=== PATIENT | male | born 1995 | race African-American/Black ===

== ENCOUNTER 2017-09-11 09:45 | Emergency (ER) | payer OTHER ==
[2017-09-11] MEDS: ONDANSETRON PF 4 MG/2 ML VIAL. IV ×2 (10:05)
[2017-09-11] MEDS: IV NORMAL SALINE 1000ML BAG 1,000 ML IV ×4 (10:05→10:58)
[2017-09-11 10:08] LABS: BASO % 0 % (0-3); EOS % 0 % (0-3); HEMATOCRIT 47.2 % (39.0-53.0); HEMOGLOBIN 16.1 g/dL (13.0-17.5); LYMPH # 0.5 x10^3/uL (1.0-4.8); LYMPH % 6 % (24-48); MEAN CORPUSCULAR HEMOGLOBIN 31 pg (25-35); MEAN CORPUSCULAR HGB CONC 34 g/dL (31-37); MEAN CORPUSCULAR VOLUME 90 fL (79-100); MONO # 0.6 x10^3/uL (0.0-1.1); MONO % 7 % (0-9); NEUT # 7.3 x10^3uL (1.8-7.7); NEUT % 86 % (31-73); PLATELET COUNT 190 x10^3/uL (140-400); RED BLOOD COUNT 5.25 x10^6/uL (4.30-5.70); RED CELL DISTRIBUTION WIDTH 12.8 % (11.5-14.5); WHITE BLOOD COUNT 8.4 x10^3/uL (4.0-11.0)
[2017-09-11 10:12] LABS: ADD MAN DIFF? YES
[2017-09-11 10:20] LABS: ANION GAP 14 (6-14); BLOOD UREA NITROGEN 20 mg/dL (8-26); BUN/CREATININE RATIO 18 (6-20); CALCIUM 9.9 mg/dL (8.5-10.1); CARBON DIOXIDE 25 mmol/L (21-32); CHLORIDE 102 mmol/L (98-107); CREATININE 1.1 mg/dL (0.7-1.3); GFR 101.3; GLUCOSE 123 mg/dL (70-99); POTASSIUM 3.8 mmol/L (3.5-5.1); SODIUM 141 mmol/L (136-145)
[2017-09-11 10:25] LABS: ALBUMIN 4.4 g/dL (3.4-5.0); ALBUMIN/GLOBULIN RATIO 1.2 (1.0-1.7); ALK PHOS 69 U/L (46-116); ALT (SGPT) 23 U/L (16-63); AST (SGOT) 21 U/L (15-37); LIPASE 163 U/L (73-393); TOTAL BILIRUBIN 0.7 mg/dL (0.2-1.0)
[2017-09-11 10:30] LABS: INFLUENZA A PATIENT NEGATIVE (NEGATIVE); INFLUENZA B PATIENT NEGATIVE (NEGATIVE); OBC FLU VALID
[2017-09-11 11:12] LABS: % BANDS 1 % (0-9); % LYMPHS 7 % (24-48); % MONOS 6 % (0-10); % SEGS 86 % (35-66); PLT ESTIMATE ADEQUATE (ADEQUATE)
[2017-09-11 11:41] LABS: BILIRUBIN,URINE NEGATIVE (NEG); CLARITY,URINE CLEAR; COLOR,URINE YELLOW; GLUCOSE,URINE NEGATIVE (NEG); NITRITE,URINE NEGATIVE (NEG); PROTEIN,URINE NEGATIVE (NEG-TRACE); UROBILINOGEN,URINE 0.2 mg/dL (0.2 mg/dL)
[2017-09-11 11:58] LABS: BACTERIA,URINE 0 /HPF (0-FEW); RBC,URINE 0 /HPF (0-2); WBC,URINE 0 /HPF (0-4)
== END 2017-09-11 12:10 | disposition home or self-care (01) ==
LOC: ER 09:45
DX: B34.9 Viral infection, unspecified (principal); F12.10 Cannabis abuse, uncomplicated
CPT/HCPCS: 36415; 80053; 81001; 83690; 85007; 85025; 87804; 87804-59; 96361; 96374; 99285-25; J2405; J7030

== ENCOUNTER 2018-01-21 09:42 | Emergency (ER) | payer OTHER ==
[2018-01-21] MEDS: ONDANSETRON ODT 4 MG TAB.RAPDIS. PO (10:39)
== END 2018-01-21 11:11 | disposition home or self-care (01) ==
LOC: ER 11:11
DX: R11.2 Nausea with vomiting, unspecified (principal); F12.10 Cannabis abuse, uncomplicated; F17.200 Nicotine dependence, unspecified, uncomplicated
CPT/HCPCS: 99284; Q0162

== ENCOUNTER 2018-03-01 07:59 | Emergency (ER) | payer OTHER ==
[2018-03-01 08:31] LABS: BILIRUBIN,URINE NEGATIVE (NEG); CLARITY,URINE CLOUDY; COLOR,URINE YELLOW; GLUCOSE,URINE NEGATIVE (NEG); NITRITE,URINE NEGATIVE (NEG); PH,URINE 6.5; PROTEIN,URINE NEGATIVE (NEG-TRACE)
[2018-03-01] MEDS: AZITHROMYCIN 250 MG TABLET. PO (08:32)
[2018-03-01] MEDS: cefTRIAXone IM 250 MG VIAL IM (08:37)
[2018-03-01 08:49] LABS: BACTERIA,URINE 0 /HPF (0-FEW); RBC,URINE 0 /HPF (0-2); WBC,URINE TNTC /HPF (0-4)
[2018-03-02 14:29] LABS: CHLAMYDIA PROBE Negative (Negative); GC PROBE Positive (Negative)
== END 2018-03-01 09:15 | disposition home or self-care (01) ==
LOC: ER 07:59
DX: A64 Unspecified sexually transmitted disease (principal); Z87.438 Personal history of other diseases of male genital organs; Z98.890 Other specified postprocedural states
CPT/HCPCS: 81001; 87086; 87491; 87591; 96372; 99284; J0696; Q0144

== ENCOUNTER 2018-03-11 11:03 | Emergency (ER) | payer OTHER ==
[2018-03-11 11:30] LABS: BASO # 0.1 x10^3/uL (0.0-0.2); BASO % 1 % (0-3); EOS # 0.1 x10^3/uL (0.0-0.7); EOS % 1 % (0-3); HEMATOCRIT 46.2 % (39.0-53.0); LYMPH # 1.2 x10^3/uL (1.0-4.8); LYMPH % 9 % (24-48); MEAN CORPUSCULAR HEMOGLOBIN 31 pg (25-35); MEAN CORPUSCULAR HGB CONC 35 g/dL (31-37); MEAN CORPUSCULAR VOLUME 91 fL (79-100); MONO # 0.2 x10^3/uL (0.0-1.1); MONO % 2 % (0-9); NEUT # 11.5 x10^3uL (1.8-7.7); NEUT % 88 % (31-73); PLATELET COUNT 204 x10^3/uL (140-400); RED BLOOD COUNT 5.11 x10^6/uL (4.30-5.70); WHITE BLOOD COUNT 13.1 x10^3/uL (4.0-11.0)
[2018-03-11 11:32] LABS: ADD MAN DIFF? YES
[2018-03-11 11:39] LABS: ANION GAP 14 (6-14); BLOOD UREA NITROGEN 14 mg/dL (8-26); CALCIUM 9.4 mg/dL (8.5-10.1); CARBON DIOXIDE 23 mmol/L (21-32); CHLORIDE 101 mmol/L (98-107); CREATININE 1.2 mg/dL (0.7-1.3); GFR 91.6; GLUCOSE 156 mg/dL (70-99); SODIUM 138 mmol/L (136-145)
[2018-03-11] MEDS: IV NORMAL SALINE 1000ML BAG 1,000 ML IV (11:39)
[2018-03-11] MEDS: diphenhydrAMINE 50 MG/ML VIAL IVP (11:41)
[2018-03-11] MEDS: PROCHLORPERAZINE 10 MG/2 ML VIAL. IV (11:42)
[2018-03-11] MEDS: MORPHINE SULFATE 4 MG/ML DISP.SYRIN. IV (11:43)
[2018-03-11 11:47] LABS: ALBUMIN 4.4 g/dL (3.4-5.0); ALK PHOS 73 U/L (46-116); ALT (SGPT) 59 U/L (16-63); AST (SGOT) 63 U/L (15-37); DIRECT BILIRUBIN 0.2 mg/dL (0.0-0.2); LIPASE 117 U/L (73-393); TOTAL BILIRUBIN 1.1 mg/dL (0.2-1.0); TOTAL PROTEIN 7.9 g/dL (6.4-8.2)
[2018-03-11 12:10] LABS: % BANDS 11 % (0-9); % BASOS 1 % (0-3); % LYMPHS 9 % (24-48); % MONOS 2 % (0-10); % SEGS 77 % (35-66); PLT ESTIMATE ADEQUATE (ADEQUATE)
[2018-03-11] MEDS ORDERED: CONTRAST GIVEN. MC (12:45)
[2018-03-11 13:08] LABS: BILIRUBIN,URINE NEGATIVE (NEG); CLARITY,URINE CLEAR; COLOR,URINE YELLOW; GLUCOSE,URINE NEGATIVE (NEG); NITRITE,URINE NEGATIVE (NEG); PROTEIN,URINE NEGATIVE (NEG-TRACE)
[2018-03-11 13:15] LABS: BACTERIA,URINE 0 /HPF (0-FEW); RBC,URINE 0 /HPF (0-2); WBC,URINE >40 /HPF (0-4)
[2018-03-11] MEDS: IOHEXOL 300 MG/ML 100ML VIAL. IV (13:41)
== END 2018-03-11 16:14 | disposition home or self-care (01) ==
LOC: ER 11:03
DX: K29.70 Gastritis, unspecified, without bleeding (principal)
CPT/HCPCS: 36415; 74177; 76705; 80048; 80076; 81001; 83690; 85007; 85025; 96361; 96365; 96374; 96375; 99285-25; J0780; J1200; J2270; J7030; Q9967

== ENCOUNTER 2020-05-07 23:11 | Emergency (ER) | payer MEDICAID ==
[~2020-05-07] VITALS: Ht 165.1 cm; Wt 54.0 kg
[~2020-05-07 23:11] MED LIST: CEPH-263 PO; CIPR500T94 PO; METO10TA81 PO; ONDA4TAB10 SL; OXYC1TAB15 PO; RANI150T2 PO
[2020-05-07 23:20] VITALS: BP 124/79
[2020-05-07] MEDS ORDERED: LIDOCAINE 1%/EPI 1:100,000 20 ML VIAL. INJ ONE (23:30)
[2020-05-07] MEDS ORDERED: CEPHALEXIN 250 MG CAPSULE. PO ONE (23:30)
--- NOTE | 2020-05-08 00:47 | PHYS DOC ---
Past Medical History Past Medical History: No Pertinent History Past Surgical History: Other Additional Past Surgical Histo: TESTICLE Smoking Status: Current Every Day Smoker Alcohol Use: None General Adult EDM: Chief Complaint: ABSCESS HPI: HPI: The history was obtained from the patient. Patient is a 25-year-old male with no reported PMH who presents with a chief complaint of swelling to the left axilla region. Patient states he is noticed the swelling over the past few days. Denies any spontaneous drainage. Notes it somewhat tender to touch. Denies any overlying redness. Denies IV drug use. Denies any history of MRSA. Denies any trauma to the area. States he is never had this issue before. Denies any history of diabetes. Denies chest pain or shortness of breath. Has full range of motion of the left arm. No other complaints. Review of Systems: Review of Systems: Constitutional: Denies fever or chills. [] Eyes: Denies change in visual acuity. [] HENT: Denies nasal congestion or sore throat. [] Respiratory: Denies cough or shortness of breath. [] Cardiovascular: Denies chest pain or edema. [] GI: Denies abdominal pain, nausea, vomiting, bloody stools or diarrhea. [] : Denies dysuria. [] Musculoskeletal: Denies back pain or joint pain. [] Integument: Positive for fluctuance and abscess in the left axilla Neurologic: Denies headache, focal weakness or sensory changes. [] Endocrine: Denies polyuria or polydipsia. [] Lymphatic: Denies swollen glands. [] Psychiatric: Denies depression or anxiety. [] Heart Score: Risk Factors: Risk Factors: DM, Current or recent (<one month) smoker, HTN, HLP, family history of CAD, obesity. Risk Scores: Score 0 - 3: 2.5% MACE over next 6 weeks - Discharge Home Score 4 - 6: 20.3% MACE over next 6 weeks - Admit for Clinical Observation Score 7 - 10: 72.7% MACE over next 6 weeks - Early Invasive Strategies Current Medications: Current Medications Medications (Trade) Dose Ordered Sig/Tena Start Time Stop Time Status Last Admin Dose Admin Cephalexin HCl (Keflex) 1,000 mg 1X ONCE 05/07/20 23:30 05/07/20 23:31 DC 10/2/20 00:01 1,000 MG Lidocaine/ Epinephrine (LIDOCAINE 1%-EPI 1:100,000 Multi-Dose) 20 ml 1X ONCE 05/07/20 23:30 05/07/20 23:31 DC 05/07/20 23:30 20 ML Allergies: Allergies: Allergies Coded Allergies Type Severity Reaction Last Updated Verified No Known Drug Allergies 05/07/20 No Physical Exam: PE: Constitutional: Well developed, well nourished, no acute distress, non-toxic appearance. [] HENT: Normocephalic, atraumatic, bilateral external ears normal, oropharynx moist, no oral exudates, nose normal. [] Eyes: PERRLA, EOMI, conjunctiva normal, no discharge. [] Neck: Normal range of motion, no tenderness, supple, no stridor. [] Cardiovascular:Heart rate regular rhythm, no murmur [] Lungs & Thorax: Bilateral breath sounds clear to auscultation [] Abdomen: soft, no tenderness, no masses, no pulsatile masses. [] Skin: Warm, dry, no erythema, no rash. [] Back: No tenderness, no CVA tenderness. [] Extremities: Left axilla with palpable area of fluctuance. Mild overlying induration and erythema. 3 x 3 cm Neurologic: Alert and oriented X 3, normal motor function, normal sensory function, no focal deficits noted. [] Psychologic: Affect normal, judgement normal, mood normal. [] Current Patient Data: Vital Signs: Vital Signs Date Time Temp Pulse Resp B/P (MAP) Pulse Ox O2 Delivery O2 Flow Rate FiO2 05/07/20 23:20 97.8 81 16 124/79 (94) 98 Room Air 97.8 EKG: EKG: [] Radiology/Procedures: Radiology/Procedures: [] Location: Left axilla Indications: Abscess Procedure Details: Patient's left axilla was exposed, positioned, and prepped using ChloraPrep. Landmarks were palpated and skin was appropriately marked as needed. For skin and subcutaneous tissue, 8cc of 1% lidocaine with epinephrine was used. A 3 cm incision was made using #10 through skin in a linear fashion. Immediate findings included 10 mL of purulent drainage. Cavity further explored to break up all loculations. Wound was irrigated using 50 cc of normal saline. Minimal amount of bleeding occurred, controlled with direct pressure. Wound packed with 1/2 inch ribbon and covered with sterile dressing. Course & Med Decision Making: Course & Med Decision Making Pertinent Labs and Imaging studies reviewed. (See chart for details) [] Patient is an overall well-appearing 25-year-old male who presents with chief complaint of swelling to the left axillary region. Exam consistent with abscess to left axilla. Incision and drainage performed at bedside. See procedure note for further details. Patient will be discharged home with oral Keflex. He was instructed to have the wound reevaluated by his primary care physician in the next 2 to 3 days. Return precautions discussed and understood. Stable for discharge home. Dragon Disclaimer: [employer] Disclaimer: This electronic medical record was generated, in whole or in part, using a voice recognition dictation system. Departure Departure Impression: Primary Impression: Abscess Disposition: 01 HOME, SELF-CARE Condition: STABLE Referrals: NO PCP (PCP) Patient Instructions: Abscess Additional Instructions: Please follow-up with your primary care physician in the next 2 to 3 days. Scripts Cephalexin (KEFLEX) 500 Mg Capsule 1 CAP PO QID for 7 Days, #28 CAP 0 Refills Prov: STORMY GONZALEZ DO 05/08/20 STORMY GONZALEZ DO May 08, 2020 00:47
[2020-05-08] MEDS ORDERED: CEPH-264 PO (00:50)
== END 2020-05-08 01:40 | disposition home or self-care (01) ==
LOC: ER 23:11 → MERGE 23:11 → ER 05-08 01:40
DX: L02.412 Cutaneous abscess of left axilla (principal); F17.200 Nicotine dependence, unspecified, uncomplicated
CPT/HCPCS: 10060; 99283; J3490

== ENCOUNTER 2021-03-13 08:57 | Emergency (ER) | payer MEDICAID ==
[~2021-03-13] VITALS: Ht 162.6 cm; Wt 54.3 kg
[~2021-03-13 08:57] MED LIST changes: +CEPH-264 PO
[2021-03-13 10:00] VITALS: BP 133/89
--- NOTE | 2021-03-13 11:06 | RAD ---
XR CHEST 1V History: Cough, exposure to Covid. Comparison: None. Technique: AP radiograph of the chest. Findings: The lungs are adequately and symmetrically inflated. No airspace consolidation, pleural effusion or p neumothorax. The cardiomediastinal silhouette and pulmonary vasculature are within normal limits. No acute osseous abnormality. Soft tissues are unremarkable. Impression: 1. No acute cardiopulmonary process. Electronically signed by: Ernst Longo MD (03/13/2021 11:03 AM) [id number]
--- NOTE | 2021-03-13 11:15 | PHYS DOC ---
Past Medical History Past Medical History: No Pertinent History Additional Past Medical Histor: Right testicular torsion Past Surgical History: Other Additional Past Surgical Histo: TESTICLE Smoking Status: Current Every Day Smoker Alcohol Use: Occasionally Drug Use: Marijuana General Adult EDM: Chief Complaint: COUGH HPI: HPI: Patient is a 25 year old male with no significant medical history who presents to the ED today complaining of cough, nasal congestion, body aches, shortness of breath, fevers, symptoms for 2 to 3 days. Patient states his was diagnosed with Covid 19 a couple days ago. Review of Systems: Review of Systems: Constitutional: Reports fever Eyes: Denies change in visual acuity. [] HENT: Reports nasal congestion, denies sore throat. [] Respiratory: Reports cough and shortness of breath. [] Cardiovascular: Denies chest pain or edema. [] GI: Denies abdominal pain, nausea, vomiting, bloody stools or diarrhea. [] : Denies dysuria. [] Musculoskeletal: Denies back pain or joint pain. [] Integument: Denies rash. [] Neurologic: Denies headache, focal weakness or sensory changes. [] ] Psychiatric: Denies depression or anxiety. [] Heart Score: C/O Chest Pain: N/A Risk Factors: Risk Factors: DM, Current or recent (<one month) smoker, HTN, HLP, family history of CAD, obesity. Risk Scores: Score 0 - 3: 2.5% MACE over next 6 weeks - Discharge Home Score 4 - 6: 20.3% MACE over next 6 weeks - Admit for Clinical Observation Score 7 - 10: 72.7% MACE over next 6 weeks - Early Invasive Strategies Allergies: Allergies: Allergies Coded Allergies Type Severity Reaction Last Updated Verified No Known Drug Allergies 02/15/15 No Physical Exam: PE: Constitutional: Well developed, well nourished, no acute distress, non-toxic appearance. [] HENT: Normocephalic, atraumatic, bilateral external ears normal, oropharynx moist, no oral exudates, nose normal. [] Eyes: PERRLA, EOMI, conjunctiva normal, no discharge. [] Neck: Normal range of motion, no tenderness, supple, no stridor. [] Cardiovascular:Heart rate regular rhythm, no murmur [] Lungs & Thorax: Bilateral breath sounds clear to auscultation [] Abdomen: Bowel sounds normal, soft, no tenderness, no masses, no pulsatile masses. [] Skin: Warm, dry, no erythema, no rash. [] Back: No tenderness, no CVA tenderness. [] Extremities: No tenderness, no cyanosis, no clubbing, ROM intact, no edema. [] Neurologic: Alert and oriented X 3, normal motor function, normal sensory function, no focal deficits noted. [] Psychologic: Affect normal, judgement normal, mood normal. [] Current Patient Data: Vital Signs: Vital Signs Date Time Temp Pulse Resp B/P (MAP) Pulse Ox O2 Delivery O2 Flow Rate FiO2 03/13/21 10:00 98.5 75 18 133/89 (94) 100 Room Air 98.5 EKG: EKG: [] Radiology/Procedures: Radiology/Procedures: []PROCEDURE: CHEST AP ONLY XR CHEST 1V History: Cough, exposure to Covid. Comparison: None. Technique: AP radiograph of the chest. Findings: The lungs are adequately and symmetrically inflated. No airspace consolidation, pleural effusion or pneumothorax. The cardiomediastinal silhouette and pulmonary vasculature are within normal limits. No acute osseous abnormality. Soft tissues are unremarkable. Impression: 1. No acute cardiopulmonary process. Electronically signed by: Ernst Longo MD (03/13/2021 11:03 AM) [id number] DICTATED and SIGNED BY: ERNST LONGO MD DATE: 03/13/21 [id number] Course & Med Decision Making: Course & Med Decision Making Pertinent Labs and Imaging studies reviewed. (See chart for details) This is a 25-year-old male patient presenting to the ED today cough, nasal congestion, body aches, shortness of breath, fevers for 2 to 3 days. Patient's was diagnosed with COVID-19 a couple days ago. Chest x-ray is negative, pending COVID-19 test. Discharge to home, supportive care measures. Instructed to quarantine himself. Patient's Covid results are back, he is positive. Results were given to him. Instructed to quarantine himself for 10 days. He left without his paperwork stating he has a family emergency he needs to go attend to. Dragon Disclaimer: Velvet Disclaimer: This electronic medical record was generated, in whole or in part, using a voice recognition dictation system. Departure Departure Impression: Primary Impression: Cough Additional Impressions: URI (upper respiratory infection) Qualified Codes: J06.9 - Acute upper respiratory infection, unspecified Fever Qualified Codes: R50.9 - Fever, unspecified Lab test positive for detection of COVID-19 virus Disposition: HOME / SELF CARE / HOMELESS Condition: STABLE Referrals: NO PCP (PCP) follow up with your doctor in 2 weeks Patient Instructions: Cough, Adult, [id number], Fever, Adult Additional Instructions: You were evaluated in the emergency room with symptoms consistent of a viral illness. You were tested for COVID-19. We will call you when results are back. Quarantine yourself until you get results. Maintain good hand hygiene. Wear a mask around others. Push fluids, take Tylenol or Motrin for pain or fever CANDACE BARFIELD APRN Mar 13, 2021 11:14
== END 2021-03-13 12:15 | disposition home or self-care (01) ==
LOC: ER 08:57
DX: U07.1 COVID-19 (principal); J06.9 Acute upper respiratory infection, unspecified; F17.200 Nicotine dependence, unspecified, uncomplicated
CPT/HCPCS: 71045; 87426; 99284